=== PATIENT | female | born 1985 | race Caucasian/White ===

== ENCOUNTER 2016-12-28 08:40 | Emergency (ER) | payer OTHER ==
[2016-12-28 08:45] VITALS: BP 115/61; BMI 29.2
--- NOTE | 2016-12-28 09:06 | DR.EYE ---
HPI - Time Seen Time seen: 09:00 - PCP Primary Care Physician: Mulugeta HOLLINGSWORTH - HPI Comment HPI Comment: SOME KNOT NOTED IN AREA 3 DAYS AGO WHICH RESOLVE. WORSE TODAY. - Nurses notes reviewed Nurses Notes Review: Yes - Complaint Chief Complaint Doctors Comments: PAIN AND SWELLING LEFT EYE TIMES ONE DAY. Chief Complaint:: LEFT EYE SWOLLEN AND PAINFUL. SWELLING BEGAN YESTERDAY. PT. STATES 2-3 DAYS AGO SHE HAD A KNOT ON HER FOREHEAD IN BETWEEN HER EYES. - Source History Provided: Patient - Mode of arrival Mode of Arrival: Ambulatory - Timing Onset of Chief Complaint: 12/27/16 Came on: Suddenly - Quality Quality: Pain - Location Location: Left eye - Context Onset: Spontaneous Recent: None History of: None Last Tetanus: Unknown - Severity Symptom severity: None - Associated signs and symptoms Associated signs and symptoms: None PMH - PMH Past Medical History: Yes Past Medical History: Anxiety, Depression Past Surgical History: Yes Surgical History: TUB CHUCKER Surgery, Hysterectomy, Ortho Surgery - Family History History of Family Medical Conditions: Yes Family Medical History: Diabetes Mellitus, Hypertension - Social History Does patient currently use any type of tobacco product: Yes Have you used tobacco products in the last 12 months: Yes Type of Tobacco Use: Cigarettes How many years tobacco product used: 12 Does any household member use tobacco: No Alcohol Use: None Do you use any recreational Drugs:: No Lives With: Spouse Lives Where: Home - infectious screening In the last 2 months have you had wt loss of >10#?: NO Have you had fever, night sweats or hemotysis?: No Have you traveled outside the country in the last 6 months?: No Isolation: Standard ROS - Review of Systems Constitutional: No Symptoms Reported Eyes: Blurred Vision ENTM: No Symptoms Reported. negative: Ear Pain, Nose Discharge, Nose Congestion , Throat Pain Respiratoy: No Symptoms Reported Cardiovascular: No Symptoms Reported Gastrointestinal/Abdominal: No Symptoms Reported Genitourinary: No Symptoms Reported Neurological: No Symptoms Reported Musculoskeletal: No Symptoms Reported Integumentary: No Symptoms Reported Hematologic/Lymphatic: No Symptoms Reported Endocrine: No Symptoms Reported All Other Systems: Reviewed and Negative PE - Vital Signs Vitals: Temperature 98.4 F Pulse Rate 85 Respiratory Rate 17 Blood Pressure [Right Arm] 98/57 Blood Pressure 115/61 O2 Sat by Pulse Oximetry 99 - General Limitations: No Limitations General Appearance: Alert - Head Head Exam: Normal Inspection - Eyes Eye exam: PERRL, EOMI, Conjunctival Injection (LT EYE) Eyelids: Swelling Eyelid: Left Pupils: Regular, Round: Bilateral, Reactive: Bilateral Sclera/Conjunctival: Injection: Left - ENT ENT Exam: Normal External Ear Exam External Ear Exam: Normal External Inspection TM/Canal Exam: Bilateral Normal Nose Exam: Normal Nose Exam Mouth Exam: Normal Inspection Throat Exam: Normal Inspection - Neck Neck Exam: Trachea Midline - Chest Chest Inspection: Symmetric Chest Wall Rise - Respiratory Respiratory Exam: Normal Lung Sounds Bilat Respiratory Exam: Bilateral Clear to Auscultation - Cardiovascular Cardiovascular Exam: Regular Rate, Normal Rhythm, Normal Heart Sounds - Abdominal Exam Abdominal Exam: Normal Bowel Sounds, Soft. negative: Tenderness - Extremities Extremities Exam: Normal Inspection - Back Back Exam: Normal Inspection - Neurologic Neurological Exam: Alert, Oriented X3 - Skin Skin Exam: Normal Color MDM - Additional Information Additional Information Obtained From: Family - Differential Diagnosis Differential Diagnosis: Other (LT EYE CONJUNCTIVITIS, DROOPING AND SWELLING) Course - Treatment Treatment: SEE ORDERS. - Education/Counseling Education/Counseling: Patient, Education Educated On: Diagnosis, Needs for Follow Up ROR - Labs Reviewed Laboratory Results Reviewed?: Yes Result Diagrams: 12/28/16 09:12 12/28/16 09:12 Laboratory: WBC 10.4 X10^3/uL (3.6-10.0) H 12/28/16 09:12 RBC 4.66 X10^6/uL (3.5-5.4) 12/28/16 09:12 Hgb 12.8 g/dL (12.0-16.0) 12/28/16 09:12 Hct 38.0 % (36.0-47.0) 12/28/16 09:12 MCV 81.6 fL (80.0-100.0) 12/28/16 09:12 MCH 27.4 pg (27.0-34.0) 12/28/16 09:12 MCHC 33.5 g/dL (33.0-35.0) 12/28/16 09:12 RDW 16.2 % (11.6-16.5) 12/28/16 09:12 Plt Count 191 X10^3/uL (150.0-450.0) 12/28/16 09:12 MPV 8.6 fL (7.4-11.0) 12/28/16 09:12 Neut % 65.3 % (42.0-75.0) 12/28/16 09:12 Lymph % 19.7 % (21.0-51.0) L 12/28/16 09:12 [place] % 5.8 % (0.0-13.0) 12/28/16 09:12 Eos % 8.2 % (0.9-2.9) H 12/28/16 09:12 Baso % 1.0 % (0.2-1.0) 12/28/16 09:12 Neut # 6.8 x10^3/uL (2.2-4.8) H 12/28/16 09:12 Lymph # 2.1 X10^3/uL (1.3-2.9) 12/28/16 09:12 [place] # 0.6 x10^3/uL (0.3-0.8) 12/28/16 09:12 Eos # 0.9 x10^3/uL (0.0-0.2) H 12/28/16 09:12 Baso # 0.1 X10^3/uL (0.0-0.1) 12/28/16 09:12 Absolute Nucleated RBC 0.0 /100WBC 12/28/16 09:12 Sodium 139 mmol/L (136-145) 12/28/16 09:12 Corrected Sodium 140 mmol/L (136-145) 12/28/16 09:12 Potassium 3.7 mmol/L (3.5-5.1) 12/28/16 09:12 Chloride 105 mmol/L (98-107) 12/28/16 09:12 Carbon Dioxide 30.0 mmol/L (21-32) 12/28/16 09:12 BUN 10 mg/dL (7-18) 12/28/16 09:12 Creatinine 0.87 mg/dL (0.55-1.02) 12/28/16 09:12 Est GFR (MDRD) Af Amer > 60 (>60) 12/28/16 09:12 Est GFR (MDRD) Non-Af > 60 (>60) 12/28/16 09:12 Glucose 129 mg/dL (65-99) H 12/28/16 09:12 Calcium 9.0 mg/dL (8.5-10.1) 12/28/16 09:12 Corrected Calcium TNP 12/28/16 09:12 Total Bilirubin 0.20 mg/dL (0.2-1.0) 12/28/16 09:12 AST 22 Units/L (15-37) 12/28/16 09:12 ALT 24 Units/L (12-78) 12/28/16 09:12 Alkaline Phosphatase 56 Units/L (46-116) 12/28/16 09:12 Total Protein 7.2 g/dL (6.4-8.2) 12/28/16 09:12 Albumin 3.6 g/dL (3.4-5.0) 12/28/16 09:12 Globulin 3.6 g/dL (2.5-4.5) 12/28/16 09:12 Albumin/Globulin Ratio 1.0 Ratio (1.1-2.1) L 12/28/16 09:12 TSH 3rd Generation 0.904 uIU/mL (0.358-3.74) 12/28/16 09:12 - XRAY XRAY Interpreted by: Radiologist XRAY Findings: REPORT DISCUSS WITH PATIENT. - Diagnosis Discharge Problem: Angioedema Qualifiers: Encounter type: initial encounter Qualified Code(s): T78.3XXA - Angioneurotic edema, initial encounter Sinusitis Qualifiers: Sinusitis location: other Chronicity: acute Recurrence: not specified as recurrent Qualified Code(s): J01.80 - Other acute sinusitis - Discharge Plan Disposition: 01 HOME, SELF-CARE Condition: Stable Prescriptions: Amoxicillin & Pot Clavulanate [AUGMENTIN TAB 875 mg/125 mg *] 1 tab PO BID #20 tab Hydroxyzine Pamoate [Vistaril] 25 mg PO TID PRN #15 cap PRN Reason: Methylprednisolone Dosepak 4Mg [MEDROL DOSEPAK (4 mg tab x 21)] 1 valerie PO ONCE # 1 valerie - Follow ups/Referrals Follow ups/Referrals: LEWIS HOLLINGSWORTH [Primary Care Provider] - 3 days - Instructions Instructions: Angioedema, [id number], Sinusitis, Adult, [id number] Additional Instructions: RETURN TO ED IF WORSE.
[2016-12-28 09:26] LABS: BASOPHILS # (AUTO) 0.1 X10^3/uL (0.0-0.1); EOSINOPHILS # (AUTO) 0.9 x10^3/uL (0.0-0.2); EOSINOPHILS % (AUTO) 8.2 % (0.9-2.9); HEMOGLOBIN 12.8 g/dL (12.0-16.0); LYMPHOCYTES # (AUTO) 2.1 X10^3/uL (1.3-2.9); LYMPHOCYTES % (AUTO) 19.7 % (21.0-51.0); MEAN CORPUSCULAR HEMOGLOBIN 27.4 pg (27.0-34.0); MEAN CORPUSCULAR HGB CONC 33.5 g/dL (33.0-35.0); MEAN CORPUSCULAR VOLUME 81.6 fL (80.0-100.0); MEAN PLATELET VOLUME 8.6 fL (7.4-11.0); MONOCYTES # (AUTO) 0.6 x10^3/uL (0.3-0.8); MONOCYTES % (AUTO) 5.8 % (0.0-13.0); NEUTROPHILS # (AUTO) 6.8 x10^3/uL (2.2-4.8); NEUTROPHILS % (AUTO) 65.3 % (42.0-75.0); PLATELET COUNT 191 X10^3/uL (150.0-450.0); RED BLOOD COUNT 4.66 X10^6/uL (3.5-5.4); RED CELL DISTRIBUTION WIDTH 16.2 % (11.6-16.5); WHITE BLOOD COUNT 10.4 X10^3/uL (3.6-10.0)
[2016-12-28 09:39] LABS: ALANINE AMINOTRANSFERASE 24 Units/L (12-78); ALBUMIN 3.6 g/dL (3.4-5.0); ALKALINE PHOSPHATASE 56 Units/L (46-116); ASPARTATE AMINO TRANSFERASE 22 Units/L (15-37); BLOOD UREA NITROGEN 10 mg/dL (7-18); CHLORIDE 105 mmol/L (98-107); COR NA(FOR HYPERGLY) 140 mmol/L (136-145); CREATININE 0.87 mg/dL (0.55-1.02); SODIUM 139 mmol/L (136-145); TOTAL PROTEIN 7.2 g/dL (6.4-8.2); eGFR BLACK RACES > 60 (>60); eGFR NON BLACK RACES > 60 (>60)
--- NOTE | 2016-12-28 10:23 | CT ---
History: Swollen left eye and redness Study: CT face and facial bones without contrast. Sagittal and coronal reformations were provided. Comparison: None Findings: There is mild mucosal thickening in the ethmoid sinuses. There is mucosal thickening in the floors of the maxillary sinuses without fluid level .There is mild mucosal thickening in the sphenoi d sinuses. There is no fracture or bone erosion. The orbits are intact. There is soft tissue swelling over the left orbit. There is no intraconal mass or fluid collection. There are prominent cervical l ymph nodes but less than 1 cm. Impression: 1. Nonspecific soft tissue swelling over the left orbit. 2. Mild paranasal sinusitis Reported By:
== END 2016-12-28 10:44 | disposition home or self-care (01) ==
LOC: ER 08:50
DX: T78.3XXA Angioneurotic edema, initial encounter (principal); J01.80 Other acute sinusitis
CPT/HCPCS: 36415; 70486; 80053; 84443; 85025; 99283